=== PATIENT | male | born 1960 | race Caucasian/White ===

== ENCOUNTER 2017-04-01 20:19 | Emergency (ER) | payer OTHER ==
[~2017-04-01] VITALS: Ht 175.3 cm; Wt 100.0 kg
[~2017-04-01 20:19] MED LIST: DILANTIN100 MG PO; LEVETIRACETAM750 MG PO
[2017-04-01 20:40] LABS: HEMATOCRIT 43.1 % (38.0-50.0); MCH 30.9 PG (29.0-34.0); MCHC 34.8 G/DL (30.0-36.0); MCV 88.9 FL (86-99); MEAN PLAT.VOLUME 9.5 uM^3 (9.0-12.4); PLATELET COUNT 146 K/uL (156-360); RBC DIS.WIDTH-CV 12.4 % (11.8-14.6); RBC DIS.WIDTH-SD 40.7 % (39-53); RED BLOOD COUNT 4.85 M/uL (4.00-5.50); WHITE BLOOD COUNT 4.2 K/uL (4.1-10.2)
[2017-04-01 20:52] LABS: CHLORIDE 105 mEq/L (99-109)
[2017-04-01 20:53] LABS: SODIUM 135 mEq/L (136-147)
[2017-04-01 20:54] LABS: GLUCOSE 125 mg/dL (70-99)
[2017-04-01 20:56] LABS: ANION GAP 12 MEQ/L (2-14)
[2017-04-01 20:58] LABS: GFR ESTIMATE (CALCULATED) > 59 mL/min/
[2017-04-01 20:59] LABS: UREA NITROGEN (BUN) 6 mg/dL (9-23)
[2017-04-01 21:01] LABS: CREATINE KINASE 90 IU/L (1-294)
[2017-04-01 22:16] VITALS: BP 171/88
== END 2017-04-01 22:18 | disposition home or self-care (01) ==
LOC: EME 20:19
PROVIDERS: Physician Assistant
DX: G40.909 Epilepsy, unspecified, not intractable, without status epilepticus (principal); E87.6 Hypokalemia; S00.511A Abrasion of lip, initial encounter; X58.XXXA Exposure to other specified factors, initial encounter
CPT/HCPCS: 80048; 80185; 81003; 82550; 85027; 93005; 99281; 99284

== ENCOUNTER 2017-09-24 14:53 | Emergency (ER) | payer OTHER ==
[~2017-09-24] VITALS: Ht 175.3 cm; Wt 108.0 kg
[2017-09-24 17:49] VITALS: BP 151/95
== END 2017-09-24 17:52 | disposition home or self-care (01) ==
LOC: EME 14:53
PROC: 0HQ0XZZ Repair Scalp Skin, External Approach (ICD-10-PCS; principal; 2017-09-24)
DX: S01.01XA Laceration without foreign body of scalp, initial encounter (principal); W01.0XXA Fall on same level from slipping, tripping and stumbling without subsequent striking against object, initial encounter
CPT/HCPCS: 70450; 99281; 99284

== ENCOUNTER 2017-10-01 13:03 | Emergency (ER) | payer OTHER ==
[~2017-10-01] VITALS: Ht 175.3 cm; Wt 106.9 kg
[2017-10-01 15:19] VITALS: BP 123/78
== END 2017-10-01 15:22 | disposition home or self-care (01) ==
LOC: EME 13:03
DX: S01.01XD Laceration without foreign body of scalp, subsequent encounter (principal); Z48.00 Encounter for change or removal of nonsurgical wound dressing; Z91.81 History of falling
CPT/HCPCS: 99281; 99283

== ENCOUNTER 2017-12-23 14:41 | Emergency (ER) | payer OTHER ==
[~2017-12-23] VITALS: Ht 175.3 cm; Wt 105.5 kg
[2017-12-23 15:13] LABS: HEMATOCRIT 44.8 % (38.0-50.0); MCH 32.6 PG (29.0-34.0); MCHC 35.7 G/DL (30.0-36.0); MCV 91.2 FL (86-99); PLATELET COUNT 211 K/uL (156-360); RBC DIS.WIDTH-CV 12.5 % (11.8-14.6); RBC DIS.WIDTH-SD 41.4 % (39-53); RED BLOOD COUNT 4.91 M/uL (4.00-5.50)
[2017-12-23 15:23] LABS: CHLORIDE 105 mEq/L (99-109); SODIUM 139 mEq/L (136-147)
[2017-12-23 15:24] LABS: GLUCOSE 123 mg/dL (70-99)
[2017-12-23 15:28] LABS: CREATININE 0.9 mg/dL (0.6-1.3); GFR ESTIMATE (CALCULATED) > 59 mL/min/ (58.99-99999); SERUM ETHYL ALCOHOL < 10 mg/dL
[2017-12-23 15:29] LABS: UREA NITROGEN (BUN) 12 mg/dL (9-23)
[2017-12-23 18:08] VITALS: BP 127/82
== END 2017-12-23 18:09 | disposition home or self-care (01) ==
LOC: EME 14:41
PROVIDERS: Emergency Medicine
DX: G40.909 Epilepsy, unspecified, not intractable, without status epilepticus (principal); F84.0 Autistic disorder
CPT/HCPCS: 70450; 80048; 80185; 81003; 85027; 93005; 99281; 99285; G0480; J1165; J1953; J7030; J7050